=== PATIENT | male | born 1990 | race Caucasian/White ===

== ENCOUNTER 2016-09-13 10:16 | Emergency (ER) | payer BC, OTHER ==
[2016-09-13 11:48] VITALS: BP 132/73
--- NOTE | 2016-09-13 12:32 | RAD ---
HISTORY: 2 weeks of chest tightness COMPARISONS: None VIEWS: 2: Frontal dual-energy and lateral views of the chest. FINDINGS: CARDIOMEDIASTINAL SILHOUETTE: The cardiomediastinal silhouette is normal. GIUSEPPE: The giuseppe are normal. PLEURA: The costophrenic angles are sharp. No pleural abnormalities are noted. LUNG PARENCHYMA: The lungs are clear. ABDOMEN: The upper abdomen is clear. There is no subphrenic gas. BONES AND SOFT TISSUES: No bone or soft tissue abnormalities are noted. OTHER: None. IMPRESSION: NO ACTIVE CARDIOPULMONARY DISEASE.
--- NOTE | 2016-09-13 15:47 | UC ---
Respiratory Complaint HPI - HPI Summary HPI Summary: Patient arrives to ED with CC of cough, congestion, ear pain, STUART and nasal drainage x 2 weeks. patient states that symptoms started with a productive cough, but has recently dissipated and now mucous is settling into his lungs causing a tight feeling. Patient also states ear pain and STUART. Has not had a flu shot. States he has yearly episodes of bronchitis. - History of Current Complaint Chief Complaint: UCRespiratory Stated Complaint: COUGH,CONGESTION Time Seen by Provider: 09/13/16 11:48 Hx Obtained From: Patient Onset/Duration: Gradual Onset Timing: Constant Severity Initially: Moderate Severity Currently: Moderate Pain Intensity: 0 Pain Scale Used: 0-10 Numeric Character: Cough: Productive Aggravating Factors: Deep Breaths Alleviating Factors: Bronchodilator Associated Signs And Symptoms: Positive: Dyspnea, Pleuritic Chest Pain, URI, Nasal Congestion, Sinus Discomfort - Risk Factors Pulmonary Embolism Risk Factors: Negative Cardiac Risk Factors: Negative Pseudomonas Risk Factors: Negative Tuberculosis Risk Factors: Negative - Allergies/Home Medications Allergies/Adverse Reactions: Allergies Allergy/AdvReac Type Severity Reaction Status Date / Time No Known Allergies Allergy Verified 04/17/15 18:01 Home Medications: Home Medications Albuterol HFA INHALER* [Ventolin HFA Inhaler*] 1 - 2 puff INH Q4H PRN 09/13/16 [ History Confirmed 09/13/16] PMH/Surg Hx/FS Hx/Imm Hx Previously Healthy: Yes Respiratory History Of: Reports: Asthma - Surgical History Surgical History: None - Family History Known Family History: Positive: Unknown - Social History Occupation: Employed Full-time Lives: With Family Alcohol Use: Occasionally Substance Use Type: None Smoking Status (MU): Never Smoked Tobacco - Immunization History Most Recent Influenza Vaccination: Not the Season Review of Systems Constitutional: Fatigue Skin: Negative Eyes: Negative ENT: Sore Throat, Ear Ache, Nasal Discharge Respiratory: Shortness Of Breath, Cough Cardiovascular: Negative Motor: Negative Neurovascular: Negative Musculoskeletal: Negative Neurological: Negative Psychological: Negative All Other Systems Reviewed And Are Negative: Yes Physical Exam Triage Information Reviewed: Yes Appearance: Well-Appearing, No Pain Distress, Well-Nourished Vital Signs: Initial Vital Signs Temp 98.5 F 09/13/16 11:41 Pulse 68 09/13/16 11:41 Resp 16 09/13/16 11:41 BP 132/73 09/13/16 11:41 Pulse Ox 100 09/13/16 11:41 Vital Signs Reviewed: Yes Eye Exam: Normal Eyes: Positive: Conjunctiva Clear ENT Exam: Normal ENT: Positive: Pharynx normal, Nasal drainage Dental Exam: Normal Neck exam: Normal Neck: Positive: Supple, Nontender Respiratory Exam: Normal Respiratory: Positive: Lungs clear Cardiovascular Exam: Normal Bowel Sounds: Positive: Present Musculoskeletal Exam: Normal Musculoskeletal: Positive: Strength Intact, ROM Intact Neurological Exam: Normal Neurological: Positive: Alert Psychological: Positive: Normal Response To Family, Age Appropriate Behavior Skin Exam: Normal UC Diagnostic Evaluation - Laboratory O2 Sat by Pulse Oximetry: 100 Respiratory Course/Dx - Course Course Of Treatment: Physical exam performed. Wheezing heard at left lower lung base. Productive cough noted. Patient encouraged to take claritin, robitussin with codeine only at night, and continue with mucinex. - Differential Dx/Diagnosis Differential Diagnosis/HQI/PQRI: Influenza, Lower Resp Infection, Sinusitis Provider Diagnoses: Cough Discharge - Discharge Plan Condition: Stable Disposition: HOME Prescriptions: Albuterol HFA INHALER* [Ventolin HFA Inhaler*] 1 puff INH Q4H PRN #1 mdi PRN Reason: Cough Benzonatate CAP* [Tessalon CAP*] 100 mg PO BID #21 cap MDD 3 Loratadine & Pseudoephedrine [Claritin-D 24 Hour 10-240 mg] 1 tab PO DAILY #30 tab MDD 1 Pseudoephedrine-Guaifenesin [Mucinex D 60-600 mg] 1 tab PO DAILY #15 tab MDD 1 guaiFENesin/CODIEN 100MG-10MG* [Robitussin AC 100Mg-10Mg*] 10 ml PO Q6H PRN # 100 ml MDD 40 PRN Reason: Cough Patient Education Materials: Chronic Cough (ED) Referrals: No Primary Care Phys,NOPCP [Primary Care Provider] - Additional Instructions: Take medications as prescribed to you. Do not drive while taking robitussin with codeine. Allergy medication daily for 30 days.
--- NOTE | 2016-10-13 08:23 | PN ---
Progress Note - Progress Note Note: Normal BP reading, no follow up required.
== END 2016-09-13 12:56 | disposition home or self-care (01) ==
LOC: UCCORT 10:16
DX: R05 Cough (principal); R07.81 Pleurodynia
CPT/HCPCS: 71020; 99212; G0463

== ENCOUNTER 2017-08-16 03:28 | Emergency (ER) | payer SELFPAY ==
[2017-08-16 05:00] LABS: ABS Basophils 0 10^3/ul (0-0.2); ABS Eosinophils 0.2 10^3/ul (0-0.6); ABS Lymphocytes 1.4 10^3/ul (1.0-4.8); ABS Monocytes 0.5 10^3/ul (0-0.8); ABS Nucleated RBC 0 10^3/ul; Eosinophil % 2.3 % (0-6); Hematocrit 41 % (42-52); Hemoglobin 14.1 g/dl (14.0-18.0); Lymphocyte % 19.5 % (25-47); Mean Corpuscular HGB Conc 34 g/dl (31-36); Mean Corpuscular Hemoglobin 29 pg (27-31); Mean Corpuscular Volume 86 fL (80-94); Mean Platelet Volume 8 um3 (7.4-10.4); Nucleated Red Blood Cells % 0.1; Platelet Count 220 10^3/ul (150-450); Red Cell Distribution Width 13 % (10.5-15)
[2017-08-16 05:12] LABS: EGFR Non-African American 100.5 (>60)
--- NOTE | 2017-08-16 05:27 | ED ---
Harish Silver Rebecca, scribed for Brad Mills MD on 08/16/17 at 0429 . 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 [place]. Pt had blood from the patient over both of his hands and he presents due to concern over an abrasion he has on the right hand which he received yesterday. 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 Location: Negative Aggravating Factor(s): Nothing Alleviating Factor(s): Nothing Associated Signs And Symptoms: Positive: Other - Blood exposure while working with [employer] Related History: Other - Occupational - Allergies/Home Medications Allergies/Adverse Reactions: Allergies Allergy/AdvReac Type Severity Reaction Status Date / Time No Known Allergies Allergy Verified 04/17/15 18:01 PMH/Surg Hx/FS Hx/Imm Hx Endocrine/Hematology History: Denies: Hx Diabetes Cardiovascular History: Denies: Hx Coronary Artery Disease, Hx Hypertension Respiratory History: Reports: Hx Asthma Infectious Disease History: No Infectious Disease History: Denies: Traveled Outside the [place] in Last 30 Days - Family History Known Family History: Negative: Cardiac Disease, Hypertension, Diabetes - Social History Occupation: Employed Full-time Alcohol Use: Occasionally Substance Use Type: Reports: None Smoking Status (MU): Never Smoked Tobacco Review of Systems Negative: Fever Positive: Other - 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 GENERAL: Patient is a well-developed and nourished male who is lying comfortable in the stretcher. Patient is not in any acute respiratory distress. HEAD AND FACE: No signs of trauma. No ecchymosis, hematomas or skull depressions. No sinus tenderness. EYES: PERRLA, EOMI x 2, No injected conjunctiva, no nystagmus. EARS: Hearing grossly intact. Ear canals and tympanic membranes are within normal limits. MOUTH: Oropharynx within normal limits. NECK: Supple, trachea is midline, no adenopathy, no JVD, no carotid bruit, no c- spine tenderness, neck with full ROM. CHEST: Symmetric, no tenderness at palpation LUNGS: Clear to auscultation bilaterally. No wheezing or crackles. CVS: Regular rate and rhythm, S1 and S2 present, no murmurs or gallops appreciated. ABDOMEN: Soft, non-tender. No signs of distention. No rebound no guarding, and no masses palpated. Bowel sounds are normal. EXTREMITIES: FROM in all major joints, no edema, no cyanosis or clubbing. NEURO: Alert and oriented x 3. No acute neurological deficits. Speech is normal and follows commands. SKIN: Dry and warm. 1 cm, very superficial abrasion over the right index finger with no active bleeding. Triage Information Reviewed: Yes Vital Signs On Initial Exam: Initial Vitals Temp Pulse Resp BP Pulse Ox 99.5 F 80 18 138/81 95 08/16/17 03:30 08/16/17 03:30 08/16/17 03:30 08/16/17 03:30 08/16/17 03:30 Vital Signs Reviewed: Yes Diagnostics - Vital Signs Vital Signs Temp Pulse Resp BP Pulse Ox 08/16/17 03:30 99.5 F 80 18 138/81 95 - Laboratory Result Diagrams: 08/16/17 04:45 08/16/17 04:45 Lab Statement: Any lab studies that have been ordered have been reviewed, and results considered in the medical decision making process. Re-Evaluation - Re-Evaluation First Eval Re-Evaluation Time: 05:23 Comment: At this itme, pt has decided to decline post-exposure prophylaxis. 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 Pt had blood from the patient over both of his hands and he presents due to concern over an abrasion he has on the right hand which he received yesterday. Pt decided to decline post-exposure prophylaxis. He will be D/C to home with Dx of bodily fluid exposure. He understands and agrees. - Diagnoses Provider Diagnoses: Exposure to blood or body fluid Discharge - Discharge Plan Condition: Stable Disposition: HOME Patient Education Materials: Body Substance Exposure (ED) Referrals: No Primary Care Phys,NOPCP [Primary Care Provider] - [facility] [Outside] Additional Instructions: RETURN TO EMERGENCY DEPARTMENT FOR ANY NEW OR WORSENING SYMPTOMS The documentation as recorded by the Harish spain Rebecca accurately reflects the service I personally performed and the decisions made by , Brad Mills MD.
[2017-08-16 05:38] VITALS: BP 129/80
== END 2017-08-16 05:38 | disposition home or self-care (01) ==
LOC: ED 03:28
DX: Z77.21 Contact with and (suspected) exposure to potentially hazardous body fluids (principal)
CPT/HCPCS: 36415; 80053; 85025; 86703; 86706; 86803; 87340; 99282

== ENCOUNTER 2018-10-09 17:20 | Emergency (ER) | payer BC, OTHER ==
[2018-10-09 18:04] VITALS: BP 122/83
--- NOTE | 2018-10-09 18:24 | UC ---
FLU HPI - HPI Summary HPI Summary: 27 [employer], with 3 day history of subjective fever, chills, sinus congestion, and rigors. He developed diarrhea today, and has had 3 watery stools without associated abdominal pain. Using Julienne Wesson plus. Staying hydrated and voiding well. No dizziness or lightheadedness. No flu shot this year. Co-workers with flu. - History of Current Complaint Chief Complaint: UCRespiratory Stated Complaint: ACHY/FEVER/COUGH/DIARRHEA Time Seen by Provider: 10/09/18 18:14 Hx Obtained From: Patient Onset/Duration: Gradual Onset, Lasting Days - 3 Severity Currently: Mild Severity Initially: Moderate Pain Intensity: 0 Associated Signs & Symptoms: Positive: Fever - subjective, Nasal Congestion, Headache, Diarrhea Related Hx: Possible Flu/Infectious Exposure - Allergy/Home Medications Allergies/Adverse Reactions: Allergies Allergy/AdvReac Type Severity Reaction Status Date / Time No Known Allergies Allergy Verified 10/09/18 18:01 Home Medications: Home Medications NK [No Home Medications Reported] 10/09/18 [History Confirmed 10/09/18] PMH/Surg Hx/FS Hx/Imm Hx Previously Healthy: Yes - Surgical History Surgical History: None - Family History Known Family History: Negative: Cardiac Disease, Hypertension, Diabetes - Social History Occupation: Employed Full-time Lives: With Family Alcohol Use: Occasionally Substance Use Type: None Smoking Status (MU): Never Smoked Tobacco - Immunization History Most Recent Influenza Vaccination: Not the 2015/2016 Season Review of Systems All Other Systems Reviewed And Are Negative: Yes Constitutional: Positive: Fever, Fatigue Skin: Positive: Negative Eyes: Positive: Negative ENT: Positive: Sore Throat, Sinus Congestion Respiratory: Positive: Cough Cardiovascular: Positive: Negative Gastrointestinal: Positive: Diarrhea, Other - appetite loss, has not eaten today Genitourinary: Positive: Negative Motor: Positive: Negative Neurovascular: Positive: Negative Musculoskeletal: Positive: Myalgia Neurological: Positive: Headache Psychological: Positive: Negative Is Patient Immunocompromised?: No Physical Exam Triage Information Reviewed: Yes Appearance: Ill-Appearing - well hydrated, looks mildly unwell Vital Signs: Initial Vital Signs Temp 98.1 F 10/09/18 18:02 Pulse 63 10/09/18 18:02 Resp 16 10/09/18 18:02 BP 122/83 10/09/18 18:02 Pulse Ox 99 10/09/18 18:02 Eyes: Positive: Conjunctiva Clear ENT: Positive: Pharynx normal, TMs normal Dental Exam: Normal Neck: Positive: Supple, Nontender, No Lymphadenopathy Respiratory: Positive: Lungs clear, Normal breath sounds Cardiovascular: Positive: RRR, No Murmur Abdomen Description: Positive: Nontender, No Organomegaly, Soft Bowel Sounds: Positive: Present Musculoskeletal Exam: Normal Neurological: Positive: Alert, Muscle Tone Normal Psychological Exam: Normal Skin Exam: Normal Flu Course/Dx - Course Course Of Treatment: continue symptomatic treatment of viral illness, ensuring introduction of fluids and increased food intake. - Differential Dx/Diagnosis Differential Diagnosis/HQI/PQRI: Bronchitis, Influenza, Upper Respiratory Infection Provider Diagnosis: Viral syndrome Discharge - Sign-Out/Discharge Documenting (check all that apply): Patient Departure All imaging exams completed and their final reports reviewed: No Studies - Discharge Plan Condition: Stable Disposition: HOME Patient Education Materials: Viral Syndrome (ED) Forms: *Work Release Referrals: No Primary Care Phys,NOPCP [Primary Care Provider] - Additional Instructions: Continue symptomatic treatment, and I suggest that you begin some food intake, such as soup, yogurt, toast. Monitor fever, and follow up if you have persistent fever, progressive shortness of breath or any chest pain. Rest at home, using ibuprofen or acetaminophen for control of fever and body aches. - Billing Disposition and Condition Condition: STABLE Disposition: Home
== END 2018-10-09 18:49 | disposition home or self-care (01) ==
LOC: UCCORT 17:20
DX: B34.9 Viral infection, unspecified (principal); R09.81 Nasal congestion; R19.7 Diarrhea, unspecified; R51 Headache; M79.10 Myalgia, unspecified site
CPT/HCPCS: 99211; G0463